=== PATIENT | male | born 1970 | race Caucasian/White ===

== ENCOUNTER → 2017-05-17 | Outpatient (CLI) | payer OTHER | LOC: KOH-I 15:51 | DX: M54.2 Cervicalgia (principal) | CPT/HCPCS: 72050; 72110 ==

== ENCOUNTER 2022-02-02 23:19 | Emergency (ER) | payer OTHER ==
[~2022-02-02 23:19] MED LIST: CLEOCIN HCL150 MG PO; IBUPROFEN800 MG PO
[2022-02-03 01:50] LABS: HEMOGLOBIN 14.2 gm/dl (14.0-17.5); RED BLOOD COUNT 4.93 M/UL (4.20-5.50); WHITE BLOOD COUNT 14.4 K/UL (4.5-11.0)
[2022-02-03 02:09] LABS: BUN/CREATININE RATIO 14 (0-10)
== END 2022-02-03 03:15 | disposition left against medical advice (07) ==
LOC: ER1 23:19
PROVIDERS: Family Medicine
DX: Z53.21 Procedure and treatment not carried out due to patient leaving prior to being seen by health care provider (principal)
CPT/HCPCS: 80053; 81001; 83690; 85025